=== PATIENT | male | born 1950 | race Caucasian/White ===

== ENCOUNTER 2018-11-08 06:18 | Emergency (ER) | payer SELFPAY ==
[2018-11-08] MEDS ORDERED: Sodium Chloride 0.9% 10 ML Syringe FLUSH PRN ×2 (06:23)
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
[2018-11-08] MEDS ORDERED: Lidocaine 1% with EPINEPHrine 1:100,000 50 ML MDV INFILT ONE (07:15)
[2018-11-08] MEDS ORDERED: Bacitracin Oint 1 GM U/D Packet TOP ONE (07:31)
== END 2018-11-08 07:46 | disposition home or self-care (01) ==
LOC: JP.ED 06:18
DX: S01.01XA Laceration without foreign body of scalp, initial encounter (principal); S40.011A Contusion of right shoulder, initial encounter; F17.290 Nicotine dependence, other tobacco product, uncomplicated; V49.9XXA Car occupant (driver) (passenger) injured in unspecified traffic accident, initial encounter
CPT/HCPCS: 12002; 36415; 70450; 73030-RT; 80053; 85025; 99283; 99284-25

== ENCOUNTER 2021-12-27 13:19 | Emergency (ER) | payer OTHER ==
[2021-12-27] MEDS ORDERED: Sodium Chloride 0.9% 10 ML Syringe FLUSH PRN (13:44)
[2021-12-27] MEDS ORDERED: Albuterol/Ipratropium 3.0-0.5 MG/3 ML Neb Soln NEB ONE (13:44)
[2021-12-27] MEDS ORDERED: methylPREDNISolone Sodium Succinate 125 MG/2 ML SDV IV ONE (13:46)
[2021-12-27 14:18] LABS: ESTIMATED GFR 80 mL/min (>60)
[2021-12-27 14:23] LABS: TROPONIN I HIGH SENSITIVITY 69.4 pg/mL (<=60.3)
[2021-12-27 14:42] LABS: CORONAVIRUS COVID-19 NAA NEGATIVE (NEGATIVE)
[2021-12-27] MEDS ORDERED: Azithromycin 500 MG in Sodium Chloride 0.9% 250 ML IV ONE (15:36)
[2021-12-27] MEDS ORDERED: cefTRIAXone 1 GM in Sodium Chloride 0.9% 50 ML IV ONE (15:37)
[2021-12-27] MEDS ORDERED: Levofloxacin 250 MG Tab PO ONE (15:41)
== END 2021-12-27 17:23 | disposition home or self-care (01) ==
LOC: JP.ED 13:19
DX: J18.9 Pneumonia, unspecified organism (principal); J44.9 Chronic obstructive pulmonary disease, unspecified; R77.8 Other specified abnormalities of plasma proteins; Z20.822 Contact with and (suspected) exposure to COVID-19; Z79.899 Other long term (current) drug therapy
CPT/HCPCS: 0241U; 36415; 36600; 71045; 80053; 82803; 83735; 84484; 85025; 86140; 87040; 93005; 93010; 94640; 96374; 99284; 99285; A9270; J2930; J3490; J7620

== ENCOUNTER 2022-02-27 14:05 | Emergency (ER) | payer OTHER ==
[2022-02-27] MEDS ORDERED: Ketorolac 30 MG/ML SDV IM ONE (16:18)
[2022-02-27 16:47] LABS: ESTIMATED GFR 71 mL/min (>60)
[2022-02-27] MEDS ORDERED: Albuterol 0.083% 2.5 MG/3 ML Neb Soln NEB ONE (17:00)
== END 2022-02-27 18:16 | disposition home or self-care (01) ==
LOC: JP.ED 14:05
DX: S20.212A Contusion of left front wall of thorax, initial encounter (principal); J98.01 Acute bronchospasm; E03.9 Hypothyroidism, unspecified; J44.9 Chronic obstructive pulmonary disease, unspecified; F17.210 Nicotine dependence, cigarettes, uncomplicated; Z79.82 Long term (current) use of aspirin; Z79.899 Other long term (current) drug therapy; W19.XXXA Unspecified fall, initial encounter
CPT/HCPCS: 36415; 71046; 71100; 80053; 85025; 94640; 96372; 99285; J1885

== ENCOUNTER 2023-04-01 21:33 | Inpatient (IN) | payer OTHER ==
[2023-04-01] MEDS ORDERED: Albuterol/Ipratropium 3.0-0.5 MG/3 ML Neb Soln NEB ONE (21:38)
[2023-04-01] MEDS ORDERED: methylPREDNISolone Sodium Succinate 125 MG/2 ML SDV IVPUSH ONE (21:52)
[2023-04-01 21:54] LABS: BASOPHILS ABSOLUTE AUTO 0.03 K/uL (0.00-0.10); BASOPHILS PERCENT AUTO 0.3 % (0.1-1.3); EOSINOPHILS ABSOLUTE AUTO 0.06 K/uL (0.00-0.40); EOSINOPHILS PERCENT AUTO 0.5 % (0.0-5.4); HEMATOCRIT 46.2 % (38.4-49.7); HEMOGLOBIN 15.9 g/dL (12.9-16.9); IMMATURE GRAN ABSOLUTE AUTO 0.04 K/uL (0.00-0.23); IMMATURE GRAN PERCENT AUTO 0.3 % (0.0-0.7); LYMPHOCYTES ABSOLUTE AUTO 1.17 K/uL (0.8-3.3); LYMPHOCYTES PERCENT AUTO 10.1 % (11.4-47.7); MEAN CORPUSCULAR HEMOGLOBIN 30.1 pg (31.6-35.5); MEAN CORPUSCULAR HGB CONC 34.4 g/dL (31.6-35.5); MEAN CORPUSCULAR VOLUME 87.3 fL (81.4-99.0); MONOCYTES ABSOLUTE AUTO 1.35 K/uL (0.20-0.90); MONOCYTES PERCENT AUTO 11.6 % (3.3-12.6); NEUTROPHILS ABSOLUTE AUTO 8.97 K/uL (1.0-7.6); NEUTROPHILS PERCENT AUTO 77.2 % (40.0-78.1); PLATELET COUNT,PLT 239 K/uL (130-375); RED BLOOD CELL COUNT 5.29 M/uL (4.14-5.76); WHITE BLOOD CELL COUNT,WBC 11.6 K/uL (3.2-11.0)
[2023-04-01 22:15] LABS: A/G RATIO 0.9 (1.2-2.2); ALANINE AMINOTRANSFERASE,ALT 23 U/L (12-78); ALBUMIN 3.2 g/dL (3.4-5.0); ALKALINE PHOSPHATASE 82 U/L (46-116); ASPARTATE AMNIOTRANSFERASE,AST 20 U/L (15-37); BLOOD UREA NITROGEN,BUN 26 mg/dL (7-18); C-REACTIVE PROTEIN 11.36 mg/dL (0.0-0.3); CALCIUM 8.5 mg/dL (8.5-10.1); CARBON DIOXIDE,CO2 26 mmol/L (21-32); CHLORIDE,CL 100 mmol/L (100-108); CREATININE 1.1 mg/dL (0.8-1.3); ESTIMATED GFR 71 mL/min (>60); GLUCOSE RANDOM 113 mg/dL (74-106); POTASSIUM,K 3.4 mmol/L (3.6-5.2); PROTEIN TOTAL,TP 6.9 g/dL (6.4-8.2); SODIUM,NA 136 mmol/L (140-148)
[2023-04-01 22:16] LABS: ANION GAP 13.4 mmol/L (5.0-14.0)
[2023-04-01 22:22] LABS: BASE EXCESS ARTERIAL 3.5 mm/L; BICARBONATE,ARTERIAL 26.7 mmol/L (22.0-26.0); CARBOXYHEMOGLOBIN 4.1 % (0.0-1.6); METHEMOGLOBIN 0.7 %; O2 SATURATION ARTERIAL 94.1 % (95.0-98.0); OXYHEMOGLOBIN 89.6 %; PCO2 ARTERIAL 37.4 mmHg (35.0-42.0); PO2 ARTERIAL 70.8 mmHg (75.0-100.0); TOTAL HEMOGLOBIN 15.6 g/dL (13.5-18.0)
[2023-04-01] MEDS ORDERED: Levofloxacin/Dextrose 5%-Water 750 MG in Premix Bag 1 BAG IV ONE (23:37)
[2023-04-02] MEDS ORDERED: Albuterol 0.083% 2.5 MG/3 ML Neb Soln NEB PRN (00:54)
[2023-04-02] MEDS ORDERED: Ondansetron 4 MG/2 ML SDV IV PRN (00:54)
[2023-04-02] MEDS ORDERED: Melatonin 3 MG Tab PO PRN (00:54)
[2023-04-02] MEDS ORDERED: Nicotine 21 MG/24 Hr Patch TRDERM PRN (00:54)
[2023-04-02] MEDS ORDERED: Acetaminophen 325 MG Tab PO PRN (00:54)
[2023-04-02] MEDS ORDERED: Ondansetron 4 MG Tab.DIS PO PRN (00:54)
[2023-04-02] MEDS ORDERED: Magnesium Hydroxide 400 MG/5 ML Susp 30 ML Cup PO PRN (00:54)
[2023-04-02] MEDS ORDERED: Enoxaparin 40 MG/0.4 ML Syringe SUBCUT SCH (00:54)
[2023-04-02] MEDS: Levofloxacin/Dextrose 5%-Water 750 MG in Premix Bag 1 BAG IV SCH ×2 (01:25→22:56)
[2023-04-02 05:55] LABS: BASOPHILS PERCENT AUTO 0.1 % (0.1-1.3); HEMATOCRIT 45.1 % (38.4-49.7); HEMOGLOBIN 15.4 g/dL (12.9-16.9); IMMATURE GRAN ABSOLUTE AUTO 0.05 K/uL (0.00-0.23); IMMATURE GRAN PERCENT AUTO 0.5 % (0.0-0.7); LYMPHOCYTES ABSOLUTE AUTO 0.46 K/uL (0.8-3.3); LYMPHOCYTES PERCENT AUTO 4.9 % (11.4-47.7); MEAN CORPUSCULAR HEMOGLOBIN 29.8 pg (31.6-35.5); MEAN CORPUSCULAR HGB CONC 34.1 g/dL (31.6-35.5); MEAN CORPUSCULAR VOLUME 87.4 fL (81.4-99.0); MONOCYTES ABSOLUTE AUTO 0.23 K/uL (0.20-0.90); MONOCYTES PERCENT AUTO 2.4 % (3.3-12.6); NEUTROPHILS ABSOLUTE AUTO 8.68 K/uL (1.0-7.6); NEUTROPHILS PERCENT AUTO 92.1 % (40.0-78.1); PLATELET COUNT,PLT 239 K/uL (130-375); RED BLOOD CELL COUNT 5.16 M/uL (4.14-5.76); WHITE BLOOD CELL COUNT,WBC 9.4 K/uL (3.2-11.0)
[2023-04-02] MEDS ORDERED: Albuterol/Ipratropium 3.0-0.5 MG/3 ML Neb Soln NEB SCH (06:00)
[2023-04-02 06:07] LABS: CALCIUM 8.5 mg/dL (8.5-10.1); EST CRCL DRUG DOSING (CG) 69.78 mL/min; POTASSIUM,K 3.8 mmol/L (3.6-5.2)
[2023-04-02 06:14] LABS: BASOPHILS ABSOLUTE AUTO 0.01 K/uL (0.00-0.10)
[2023-04-02 06:15] LABS: ANION GAP 12.8 mmol/L (5.0-14.0)
[2023-04-02] MEDS: Albuterol/Ipratropium 3.0-0.5 MG/3 ML Neb Soln NEB SCH ×4 (07:51→20:20)
[2023-04-02] MEDS: Aspirin 81 MG Tab.Chew PO SCH (08:25)
[2023-04-02] MEDS: Levothyroxine 25 MCG Tab PO SCH (08:25)
[2023-04-02] MEDS: Levothyroxine 100 MCG Tab PO SCH (08:25)
[2023-04-02] MEDS: Lactobacillus Rhamnosus GG (Probiotic) Cap PO SCH ×2 (08:25→20:22)
[2023-04-02] MEDS ORDERED: Benzonatate 100 MG Cap PO PRN (09:28)
[2023-04-02] MEDS ORDERED: guaiFENesin/Dextromethorphan 100-10 MG/5 ML Soln 10 ML Cup PO PRN (09:28)
[2023-04-02] MEDS ORDERED: predniSONE 20 MG Tab PO ONE (10:00)
[2023-04-02] MEDS: Albuterol 6.7 GM Inhaler INH PRN ×5 (10:00→18:58)
[2023-04-02] MEDS ORDERED: Naloxone 0.4 MG/ML SDV IVPUSH PRN (19:51)
[2023-04-02] MEDS: Enoxaparin 40 MG/0.4 ML Syringe SUBCUT SCH (20:22)
[2023-04-02] MEDS: Morphine 10 MG/0.5 ML Oral Syringe PO PRN (20:23)
[2023-04-03] MEDS: Albuterol 6.7 GM Inhaler INH PRN ×2 (02:25)
[2023-04-03] MEDS: Morphine 10 MG/0.5 ML Oral Syringe PO PRN ×6 (02:31→20:46)
[2023-04-03] MEDS ORDERED: Ibuprofen 600 MG Tab PO ONE (03:47)
[2023-04-03 04:52] LABS: HEMATOCRIT 45.4 % (38.4-49.7); HEMOGLOBIN 15.4 g/dL (12.9-16.9); MEAN CORPUSCULAR HEMOGLOBIN 29.8 pg (31.6-35.5); MEAN CORPUSCULAR HGB CONC 33.9 g/dL (31.6-35.5); MEAN CORPUSCULAR VOLUME 87.8 fL (81.4-99.0); RED BLOOD CELL COUNT 5.17 M/uL (4.14-5.76)
[2023-04-03 05:10] LABS: C-REACTIVE PROTEIN 14.71 mg/dL (0.0-0.3); CALCIUM 8.6 mg/dL (8.5-10.1); EST CRCL DRUG DOSING (CG) 69.78 mL/min; POTASSIUM,K 3.9 mmol/L (3.6-5.2)
[2023-04-03 05:28] LABS: ANION GAP 11.9 mmol/L (5.0-14.0)
[2023-04-03] MEDS: Levothyroxine 100 MCG Tab PO SCH (06:57)
[2023-04-03] MEDS: Levothyroxine 25 MCG Tab PO SCH (06:58)
[2023-04-03] MEDS: predniSONE 20 MG Tab PO SCH (07:01)
[2023-04-03] MEDS: Albuterol/Ipratropium 3.0-0.5 MG/3 ML Neb Soln NEB SCH ×4 (07:22→20:39)
[2023-04-03] MEDS: Lactobacillus Rhamnosus GG (Probiotic) Cap PO SCH ×2 (08:23→20:38)
[2023-04-03] MEDS: Sennosides/Docusate Sodium 50-8.6 MG Tab PO PRN (08:23)
[2023-04-03] MEDS: Aspirin 81 MG Tab.Chew PO SCH (08:23)
[2023-04-03] MEDS ORDERED: Albuterol 6.7 GM Inhaler INH PRN (10:34)
[2023-04-03] MEDS: Enoxaparin 40 MG/0.4 ML Syringe SUBCUT SCH (20:39)
[2023-04-03] MEDS ORDERED: Levofloxacin 250 MG Tab PO SCH (21:00)
[2023-04-04] MEDS: Morphine 10 MG/0.5 ML Oral Syringe PO PRN ×3 (00:31→07:40)
[2023-04-04] MEDS ORDERED: Ibuprofen 600 MG Tab PO PRN (03:46)
[2023-04-04] MEDS ORDERED: Albuterol 0.083% 2.5 MG/3 ML Neb Soln NEB PRN (03:53)
[2023-04-04] MEDS: Albuterol/Ipratropium 3.0-0.5 MG/3 ML Neb Soln NEB SCH ×2 (06:57→10:45)
[2023-04-04] MEDS: predniSONE 20 MG Tab PO SCH (07:34)
[2023-04-04] MEDS: Levothyroxine 25 MCG Tab PO SCH (07:35)
[2023-04-04] MEDS: Levothyroxine 100 MCG Tab PO SCH (07:35)
[2023-04-04] MEDS: Sennosides/Docusate Sodium 50-8.6 MG Tab PO PRN (09:40)
[2023-04-04] MEDS: Aspirin 81 MG Tab.Chew PO SCH (09:40)
[2023-04-04] MEDS: Lactobacillus Rhamnosus GG (Probiotic) Cap PO SCH (09:40)
== END 2023-04-04 12:50 | disposition home or self-care (01) | DRG 193 ==
LOC: JP.ED 21:33 → JP.MS 04-02 00:29
PROVIDERS: ADMIT Registered Nurse; ATTEND Hospitalist
DX: J18.9 Pneumonia, unspecified organism (principal); J96.01 Acute respiratory failure with hypoxia; J44.0 Chronic obstructive pulmonary disease with (acute) lower respiratory infection; J44.1 Chronic obstructive pulmonary disease with (acute) exacerbation; R64 Cachexia; R09.02 Hypoxemia; F17.210 Nicotine dependence, cigarettes, uncomplicated; Z96.612 Presence of left artificial shoulder joint; Z20.822 Contact with and (suspected) exposure to COVID-19; J44.9 Chronic obstructive pulmonary disease, unspecified; Z98.890 Other specified postprocedural states; Z85.46 Personal history of malignant neoplasm of prostate; Z90.49 Acquired absence of other specified parts of digestive tract; Z68.23 Body mass index [BMI] 23.0-23.9, adult; E03.9 Hypothyroidism, unspecified; Z79.82 Long term (current) use of aspirin; Z79.899 Other long term (current) drug therapy
CPT/HCPCS: 36415; 36600; 71045 ×2; 80053; 82803; 83605; 85025; 86140; 87635; 94640; 96374; 99285 ×2; J2930; 80048; 85027; 87070; 87205; 99222; 99232; 99238; A9270-GY; J1650; J1956; J7512; J7620; U0002

== ENCOUNTER 2023-04-11 08:21 | Inpatient (IN) | payer OTHER ==
[2023-04-11] MEDS ORDERED: methylPREDNISolone Sodium Succinate 125 MG/2 ML SDV IVPUSH ONE (08:33)
[2023-04-11] MEDS ORDERED: Albuterol 0.083% 2.5 MG/3 ML Neb Soln NEB ONE (08:34)
[2023-04-11 08:48] LABS: BASOPHILS PERCENT AUTO 0.1 % (0.1-1.3); EOSINOPHILS ABSOLUTE AUTO 0.15 K/uL (0.00-0.40); HEMATOCRIT 47.7 % (38.4-49.7); HEMOGLOBIN 16.2 g/dL (12.9-16.9); IMMATURE GRAN PERCENT AUTO 0.3 % (0.0-0.7); LYMPHOCYTES ABSOLUTE AUTO 1.27 K/uL (0.8-3.3); LYMPHOCYTES PERCENT AUTO 17.1 % (11.4-47.7); MEAN CORPUSCULAR HEMOGLOBIN 29.8 pg (31.6-35.5); MEAN CORPUSCULAR VOLUME 87.7 fL (81.4-99.0); MONOCYTES ABSOLUTE AUTO 0.61 K/uL (0.20-0.90); MONOCYTES PERCENT AUTO 8.2 % (3.3-12.6); NEUTROPHILS ABSOLUTE AUTO 5.37 K/uL (1.0-7.6); NEUTROPHILS PERCENT AUTO 72.3 % (40.0-78.1); PLATELET COUNT,PLT 285 K/uL (130-375); RED BLOOD CELL COUNT 5.44 M/uL (4.14-5.76); WHITE BLOOD CELL COUNT,WBC 7.4 K/uL (3.2-11.0)
[2023-04-11 08:52] LABS: BASOPHILS ABSOLUTE AUTO 0.01 K/uL (0.00-0.10); IMMATURE GRAN ABSOLUTE AUTO 0.02 K/uL (0.00-0.23)
[2023-04-11 08:55] LABS: BASE EXCESS ARTERIAL 3.6 mm/L; BICARBONATE,ARTERIAL 26.5 mmol/L (22.0-26.0); CARBOXYHEMOGLOBIN 3.4 % (0.0-1.6); METHEMOGLOBIN 0.8 %; O2 SATURATION ARTERIAL 90.2 % (95.0-98.0); OXYHEMOGLOBIN 86.4 %; PCO2 ARTERIAL 36.2 mmHg (35.0-42.0); PO2 ARTERIAL 60.8 mmHg (75.0-100.0); TOTAL HEMOGLOBIN 16.1 g/dL (13.5-18.0)
[2023-04-11 09:11] LABS: LACTIC ACID 2.6 mmol/L (0.4-2.0)
[2023-04-11 09:16] LABS: A/G RATIO 0.7 (1.2-2.2); ALANINE AMINOTRANSFERASE,ALT 32 U/L (12-78); ALBUMIN 2.8 g/dL (3.4-5.0); ALKALINE PHOSPHATASE 73 U/L (46-116); ASPARTATE AMNIOTRANSFERASE,AST 21 U/L (15-37); BILIRUBIN TOTAL 0.7 mg/dL (0.2-1.0); BLOOD UREA NITROGEN,BUN 17 mg/dL (7-18); CALCIUM 8.4 mg/dL (8.5-10.1); CARBON DIOXIDE,CO2 30 mmol/L (21-32); CHLORIDE,CL 102 mmol/L (100-108); CREATININE 0.9 mg/dL (0.8-1.3); EST CRCL DRUG DOSING (CG) 77.86 mL/min; ESTIMATED GFR 90 mL/min (>60); GLUCOSE RANDOM 114 mg/dL (74-106); POTASSIUM,K 3.1 mmol/L (3.6-5.2); PROTEIN TOTAL,TP 6.6 g/dL (6.4-8.2); SODIUM,NA 142 mmol/L (140-148)
[2023-04-11 09:18] LABS: ANION GAP 13.1 mmol/L (5.0-14.0)
[2023-04-11] MEDS ORDERED: Sodium Chloride 0.9% 1,000 ML IV SCH (09:30)
[2023-04-11] MEDS ORDERED: Potassium Chloride 20 MEQ Tab.ER PO ONE ×2 (09:36→12:00)
[2023-04-11] MEDS ORDERED: Nicotine Polacrilex 2 MG Gum CHEW ONE (09:42)
[2023-04-11] MEDS ORDERED: Doxycycline 100 MG in Sodium Chloride 0.9% 100 ML IV ONE (09:59)
[2023-04-11] MEDS ORDERED: cefTRIAXone 2 GM in Sodium Chloride 0.9% 50 ML IV ONE (10:00)
[2023-04-11] MEDS ORDERED: Benzonatate 100 MG Cap PO PRN (11:25)
[2023-04-11] MEDS ORDERED: Ondansetron 4 MG/2 ML SDV IV PRN (11:25)
[2023-04-11] MEDS ORDERED: Magnesium Hydroxide 400 MG/5 ML Susp 30 ML Cup PO PRN (11:25)
[2023-04-11] MEDS ORDERED: Acetaminophen 325 MG Tab PO PRN (11:25)
[2023-04-11] MEDS ORDERED: Sennosides/Docusate Sodium 50-8.6 MG Tab PO PRN (11:25)
[2023-04-11] MEDS ORDERED: Ondansetron 4 MG Tab.DIS PO PRN (11:25)
[2023-04-11] MEDS ORDERED: guaiFENesin/Dextromethorphan 100-10 MG/5 ML Soln 10 ML Cup PO PRN (11:25)
[2023-04-11] MEDS: Albuterol 0.083% 2.5 MG/3 ML Neb Soln NEB PRN ×3 (11:53→19:26)
[2023-04-11] MEDS: Enoxaparin 40 MG/0.4 ML Syringe SUBCUT SCH (12:11)
[2023-04-11] MEDS: Albuterol/Ipratropium 3.0-0.5 MG/3 ML Neb Soln NEB SCH ×2 (16:08→21:52)
[2023-04-11 16:16] LABS: APPEARANCE,URINE CLEAR (CLEAR); BILIRUBIN,URINE NEGATIVE (NEGATIVE); COLOR,URINE YELLOW (YELLOW); GLUCOSE,URINE NEGATIVE (NEGATIVE); KETONES,URINE TRACE mg/dL (NEGATIVE); LEUKOCYTE ESTERASE,URINE NEGATIVE (NEGATIVE); NITRITE,URINE NEGATIVE (NEGATIVE); OCCULT BLOOD,URINE NEGATIVE (NEGATIVE); PH,URINE 6.5 (5.0-8.0); PROTEIN,URINE TRACE mg/dL (NEGATIVE)
[2023-04-11 16:23] LABS: AMORPHOUS SEDIMENT,URINE NOT SEEN; BACTERIA,URINE FEW; EPITHELIAL CELLS,URINE FEW; MUCUS,URINE NOT SEEN; RBC,URINE NOT SEEN (0-5); WBC,URINE 0-5 (0-5)
[2023-04-11] MEDS: Lactobacillus Rhamnosus GG (Probiotic) Cap PO SCH (21:51)
[2023-04-11] MEDS: Doxycycline 100 MG in Sodium Chloride 0.9% 100 ML IV SCH (21:52)
[2023-04-12] MEDS: Albuterol 0.083% 2.5 MG/3 ML Neb Soln NEB PRN ×6 (01:35→22:53)
[2023-04-12 05:12] LABS: HEMATOCRIT 42.3 % (38.4-49.7); HEMOGLOBIN 14.3 g/dL (12.9-16.9); MEAN CORPUSCULAR HEMOGLOBIN 29.8 pg (31.6-35.5); MEAN CORPUSCULAR HGB CONC 33.8 g/dL (31.6-35.5); MEAN CORPUSCULAR VOLUME 88.1 fL (81.4-99.0); RED BLOOD CELL COUNT 4.8 M/uL (4.14-5.76); WHITE BLOOD CELL COUNT,WBC 8.2 K/uL (3.2-11.0)
[2023-04-12 05:26] LABS: ANION GAP 7.9 mmol/L (5.0-14.0); CALCIUM 8.2 mg/dL (8.5-10.1); CREATININE 0.8 mg/dL (0.8-1.3); EST CRCL DRUG DOSING (CG) 87.59 mL/min
[2023-04-12] MEDS: Albuterol/Ipratropium 3.0-0.5 MG/3 ML Neb Soln NEB SCH ×4 (06:56→20:09)
[2023-04-12] MEDS: Levothyroxine 100 MCG Tab PO SCH (07:56)
[2023-04-12] MEDS: Levothyroxine 25 MCG Tab PO SCH (07:57)
[2023-04-12] MEDS: Aspirin 81 MG Tab.Chew PO SCH (08:03)
[2023-04-12] MEDS: Lactobacillus Rhamnosus GG (Probiotic) Cap PO SCH ×2 (08:03→20:10)
[2023-04-12] MEDS: Doxycycline 100 MG in Sodium Chloride 0.9% 100 ML IV SCH ×2 (09:50→21:17)
[2023-04-12] MEDS ORDERED: cefTRIAXone 2 GM in Sodium Chloride 0.9% 50 ML IV SCH (10:00)
[2023-04-12] MEDS ORDERED: Albuterol 6.7 GM Inhaler INH PRN (10:10)
[2023-04-12] MEDS: Enoxaparin 40 MG/0.4 ML Syringe SUBCUT SCH (12:19)
[2023-04-13] MEDS: Albuterol 0.083% 2.5 MG/3 ML Neb Soln NEB PRN ×4 (04:03→12:35)
[2023-04-13] MEDS: Albuterol/Ipratropium 3.0-0.5 MG/3 ML Neb Soln NEB SCH ×2 (07:02→10:51)
[2023-04-13] MEDS: Levothyroxine 100 MCG Tab PO SCH (08:17)
[2023-04-13] MEDS: Levothyroxine 25 MCG Tab PO SCH (08:17)
[2023-04-13] MEDS: Aspirin 81 MG Tab.Chew PO SCH (08:18)
[2023-04-13] MEDS: Lactobacillus Rhamnosus GG (Probiotic) Cap PO SCH (08:18)
[2023-04-13] MEDS ORDERED: Doxycycline 100 MG Cap PO SCH (09:00)
[2023-04-13] MEDS ORDERED: Cefdinir 300 MG Cap PO SCH (09:00)
[2023-04-13] MEDS ORDERED: LORazepam 0.5 MG Tab PO ONE ×2 (09:36→12:54)
[2023-04-13] MEDS: Enoxaparin 40 MG/0.4 ML Syringe SUBCUT SCH (11:14)
== END 2023-04-13 14:03 | disposition home or self-care (01) | DRG 871 ==
LOC: JP.ED 08:21 → JP.MS 10:27
PROVIDERS: ADMIT Internal Medicine; ATTEND Internal Medicine
PROC: 4A03XR1 Measurement of Arterial Saturation, Peripheral, External Approach (ICD-10-PCS; principal; 2023-04-11)
PROC: 3E03329 Introduction of Other Anti-infective into Peripheral Vein, Percutaneous Approach (ICD-10-PCS; 2023-04-11)
DX: A41.9 Sepsis, unspecified organism (principal); J18.9 Pneumonia, unspecified organism; J44.9 Chronic obstructive pulmonary disease, unspecified; F17.200 Nicotine dependence, unspecified, uncomplicated; J96.01 Acute respiratory failure with hypoxia; R65.20 Severe sepsis without septic shock; E03.9 Hypothyroidism, unspecified; Z20.822 Contact with and (suspected) exposure to COVID-19; F17.290 Nicotine dependence, other tobacco product, uncomplicated; E86.0 Dehydration; E87.6 Hypokalemia; Z66 Do not resuscitate; J43.9 Emphysema, unspecified; Z96.619 Presence of unspecified artificial shoulder joint; Z79.82 Long term (current) use of aspirin; Z79.899 Other long term (current) drug therapy; Z85.46 Personal history of malignant neoplasm of prostate; Z90.49 Acquired absence of other specified parts of digestive tract; Z79.890 Hormone replacement therapy
CPT/HCPCS: 36415; 36600; 71045 ×2; 71250 ×2; 80053; 82803; 83605; 83880; 84443; 85025; 86140; 87040 ×2; 94640; 96361; 96374; 96375; 99285 ×2; A9270 ×2; J2930; J3490 ×2; J7030; 80048; 81001; 85027; 87070; 87205; 99223; 99232; 99239; J0696; J1650; J7620; U0002

== ENCOUNTER 2024-04-18 11:31 | Emergency (ER) | payer OTHER ==
[2024-04-18] MEDS: Albuterol/Ipratropium 3.0-0.5 MG/3 ML Neb Soln ONE (11:38)
[2024-04-18] MEDS: Albuterol/Ipratropium 3.0-0.5 MG/3 ML Neb Soln NEB ONE ×2 (11:38→14:56)
[2024-04-18] MEDS ORDERED: Sodium Chloride 0.9% 10 ML Syringe FLUSH PRN (11:40)
[2024-04-18 11:59] LABS: BASE EXCESS ARTERIAL 0.3 mm/L; BASOPHILS ABSOLUTE AUTO 0.07 K/uL (0.00-0.10); BASOPHILS PERCENT AUTO 1.6 % (0.1-1.3); BICARBONATE,ARTERIAL 24.3 mmol/L (22.0-26.0); CARBOXYHEMOGLOBIN 5.3 % (0.0-1.6); EOSINOPHILS ABSOLUTE AUTO 0.13 K/uL (0.00-0.40); EOSINOPHILS PERCENT AUTO 2.9 % (0.0-5.4); HEMATOCRIT 49.8 % (38.4-49.7); HEMOGLOBIN 16.8 g/dL (12.9-16.9); IMMATURE GRAN PERCENT AUTO 0.2 % (0.0-0.7); LYMPHOCYTES ABSOLUTE AUTO 1.13 K/uL (0.8-3.3); LYMPHOCYTES PERCENT AUTO 25.3 % (11.4-47.7); MEAN CORPUSCULAR HEMOGLOBIN 30.8 pg (31.6-35.5); MEAN CORPUSCULAR HGB CONC 33.7 g/dL (31.6-35.5); MEAN CORPUSCULAR VOLUME 91.4 fL (81.4-99.0); METHEMOGLOBIN 1.1 %; MONOCYTES ABSOLUTE AUTO 0.42 K/uL (0.20-0.90); MONOCYTES PERCENT AUTO 9.4 % (3.3-12.6); NEUTROPHILS PERCENT AUTO 60.6 % (40.0-78.1); O2 SATURATION ARTERIAL 96.6 % (95.0-98.0); OXYHEMOGLOBIN 90.4 %; PCO2 ARTERIAL 39.6 mmHg (35.0-42.0); PLATELET COUNT,PLT 153 K/uL (130-375); PO2 ARTERIAL 82.3 mmHg (75.0-100.0); RED BLOOD CELL COUNT 5.45 M/uL (4.14-5.76); WHITE BLOOD CELL COUNT,WBC 4.5 K/uL (3.2-11.0)
[2024-04-18 12:00] LABS: IMMATURE GRAN ABSOLUTE AUTO 0.01 K/uL (0.00-0.23)
[2024-04-18 12:27] LABS: CALCIUM 9.2 mg/dL (8.5-10.1); CREATININE 1.5 mg/dL (0.8-1.3); EST CRCL DRUG DOSING (CG) 46.02 mL/min
[2024-04-18] MEDS: LORazepam 0.5 MG Tab PO ONE (12:36)
[2024-04-18] MEDS: methylPREDNISolone Sodium Succinate 125 MG/2 ML SDV IVPUSH ONE (12:37)
[2024-04-18] MEDS: cefTRIAXone 2 GM in Sodium Chloride 0.9% 50 ML IV ONE (12:42)
[2024-04-18 12:43] LABS: TROPONIN I HIGH SENSITIVITY 61.6 pg/mL (<=60.3)
[2024-04-18] MEDS: Magnesium Sulfate/Water Premix 2 GM in Premix Bag 1 BAG IV ONE (13:09)
[2024-04-18] MEDS: Sodium Chloride 0.9% 100 ML IV SCH (13:24)
[2024-04-18] MEDS: Iopamidol 755 Mg/ML 100 ML Bottle IV ONE (13:24)
== END 2024-04-18 15:09 | disposition home or self-care (01) ==
LOC: JP.ED 11:31
DX: J44.1 Chronic obstructive pulmonary disease with (acute) exacerbation (principal); F17.210 Nicotine dependence, cigarettes, uncomplicated; E03.9 Hypothyroidism, unspecified; Z79.82 Long term (current) use of aspirin; Z79.899 Other long term (current) drug therapy
CPT/HCPCS: 36415; 36600; 71046; 71275; 80048; 82803; 83605; 83880; 84145; 84484; 85025; 85379; 87040; 87077; 87186; 87635; 93005; 94640; 96365; 96366; 96367; 96375; 99285; A9270; J0696; J2919; J3475; J3490; Q9967; J7620; U0002